=== PATIENT | female | born 1945 | race Two or more races ===

== ENCOUNTER 2022-12-26 14:41 | Inpatient (IN) | payer OTHER ==
[~2022-12-26] VITALS: Ht 152.4 cm; Wt 69.9 kg
[2022-12-26] MEDS ORDERED: SYNTHROID50 MCG (14:53)
[2022-12-26] MEDS ORDERED: ATORVASTATIN CA10 MG (14:54)
[2022-12-26] MEDS ORDERED: XARELTO10 MG (14:54)
[2022-12-26] MEDS ORDERED: TENORMIN25 MG (14:54)
== END 2023-01-04 19:31 | disposition home or self-care (01) | DRG 641 ==
LOC: ER 14:41 → MEDJ 22:18
PROVIDERS: ADMIT Internal Medicine; ATTEND Internal Medicine
PROC: 0DH67UZ Insertion of Feeding Device into Stomach, Via Natural or Artificial Opening (ICD-10-PCS; principal; 2022-12-26)
PROC: B020ZZZ Computerized Tomography (CT Scan) of Brain (ICD-10-PCS; 2022-12-26)
PROC: 3E0G76Z Introduction of Nutritional Substance into Upper GI, Via Natural or Artificial Opening (ICD-10-PCS; 2022-12-27)
PROC: 02HV33Z Insertion of Infusion Device into Superior Vena Cava, Percutaneous Approach (ICD-10-PCS; 2022-12-28)
PROC: 5A0955A Assistance with Respiratory Ventilation, Greater than 96 Consecutive Hours, High Flow/Velocity Cannula (ICD-10-PCS; 2022-12-28)
PROC: 8E0ZXY6 Isolation (ICD-10-PCS; 2022-12-29)
PROC: B020ZZZ Computerized Tomography (CT Scan) of Brain (ICD-10-PCS; 2022-12-31)
PROC: B246ZZZ Ultrasonography of Right and Left Heart (ICD-10-PCS; 2022-12-31)
DX: E87.0 Hyperosmolality and hypernatremia (principal); B37.49 Other urogenital candidiasis; R78.81 Bacteremia; E86.0 Dehydration; E87.8 Other disorders of electrolyte and fluid balance, not elsewhere classified; R13.19 Other dysphagia; G30.8 Other Alzheimer's disease; F02.80 Dementia in other diseases classified elsewhere, unspecified severity, without behavioral disturbance, psychotic disturbance, mood disturbance, and anxiety; E87.6 Hypokalemia; E86.9 Volume depletion, unspecified; D69.6 Thrombocytopenia, unspecified; B96.29 Other Escherichia coli [E. coli] as the cause of diseases classified elsewhere; R41.82 Altered mental status, unspecified; R06.89 Other abnormalities of breathing; I10 Essential (primary) hypertension; E03.9 Hypothyroidism, unspecified; Z74.01 Bed confinement status